=== PATIENT | female | born 1990 | race Caucasian/White ===

== ENCOUNTER 2018-11-16 09:12 | Emergency (ER) | payer BC ==
[2018-11-16 09:58] VITALS: BP 134/85
--- NOTE | 2018-11-16 10:02 | UC ---
General HPI - HPI Summary HPI Summary: Here with partner - Patient states 9 days ago had flu like symptoms - got better then past few days, began with cough, congestion with green sputum. Sore throat with ear pain most prominent on right side. No N/V/D. Some abdominal cramps. Good PO. Remote smoking history. Had temp of 102 last night. Had blood tinged sputum last night. +sick contacts. Chest pain with coughing. No SOB. WOrse at night. Never needed inhalers in the past. REmote smoking history. PMhx: Reviewed Meds: reviewed - History of Current Complaint Stated Complaint: SORE THROAT, COUGH, CONGESTION Time Seen by Provider: 11/16/18 09:45 Hx Last Menstrual Period: 08/05/16 - Allergy/Home Medications Allergies/Adverse Reactions: Allergies Allergy/AdvReac Type Severity Reaction Status Date / Time iodine Allergy hives,throat Verified 11/16/18 09:43 swelling Home Medications: Home Medications Ibuprofen TAB* [Motrin TAB* 400 MG] 400 mg PO Q6H PRN 11/16/18 [History Confirmed 11/16/18] Naproxen Sodium [Naproxen 220 mg] 440 mg PO QPM PRN 11/16/18 [History Confirmed 11/16/18] PMH/Surg Hx/FS Hx/Imm Hx Previously Healthy: Yes Other History Of: Negative For: HIV, Hepatitis B, Hepatitis C, Anticoagulant Therapy - Surgical History Surgical History: Yes Surgery Procedure, Year, and Place: Breast Reduction. hysteroscopy 09/2013 polyps. wisdom teeth - Family History Known Family History: Positive: Hypertension Negative: Cardiac Disease - Social History Alcohol Use: None Substance Use Type: None Smoking Status (MU): Former Smoker Type: eCigarettes Amount Used/How Often: 1/2 ppd Household Exposure Type: Cigarettes - Immunization History Most Recent Influenza Vaccination: none Review of Systems All Other Systems Reviewed And Are Negative: Yes Constitutional: Positive: Fever, Chills ENT: Positive: Sore Throat, Sinus Congestion Respiratory: Positive: Cough Gastrointestinal: Positive: Negative Is Patient Immunocompromised?: No Physical Exam Triage Information Reviewed: Yes Appearance: Well-Appearing Vital Signs Reviewed: Yes ENT: Positive: Pharyngeal erythema, Tonsillar swelling, Other - clear fluid on right side, nonbulging, no erythema Neck: Positive: Supple, Enlarged Nodes @ - anterior cervical chain Respiratory: Positive: Lungs clear, Normal breath sounds Cardiovascular: Positive: RRR, No Murmur Abdomen Description: Positive: Nontender, Soft Skin Exam: Normal Course/Dx - Course Course Of Treatment: This is a 28 yr old who presents with sore throat, cough, congestion and fever. Assessment. Nontoxic appearing. Flu: Negative. STrep: negative. Plan. Recommend supportive care. Continue to drink plenty of fluids. Recommend decongestant and cough suppressant. Continue ibuprofen as needed as directed. If symptoms persist or worsen, call PCP for further evaluation - Diagnoses Provider Diagnosis: Viral syndrome Discharge - Sign-Out/Discharge Documenting (check all that apply): Patient Departure All imaging exams completed and their final reports reviewed: No Studies - Discharge Plan Condition: Good Disposition: HOME Referrals: Melvin RAMIREZ,Robinson Martinez [Primary Care Provider] - Additional Instructions: Your strep and flu test were negative Diagnosis: VIral syndrome Recommend supportive care Continue to drink plenty of fluids Recommend decongestant and cough suppressant Continue ibuprofen as needed as directed If symptoms persist or worsen, call PCP for further evaluation - Billing Disposition and Condition Condition: GOOD Disposition: Home
[2018-11-16 10:20] LABS: Influenza A Molecular NEGATIVE (Negative); Influenza B Molecular NEGATIVE (Negative)
== END 2018-11-16 10:42 | disposition home or self-care (01) ==
LOC: UCCORT 09:12
DX: B34.9 Viral infection, unspecified (principal); Z87.891 Personal history of nicotine dependence; Z91.041 Radiographic dye allergy status
CPT/HCPCS: 87651; 99211; G0463